=== PATIENT | male | born 1965 | race Two or more races ===

== ENCOUNTER 2017-06-14 14:20 | Inpatient (IN) | payer OTHER ==
[2017-06-14 16:46] VITALS: BMI 27.3
--- NOTE | 2017-06-14 17:57 | HP ---
Admission ROS [facility] - [facility] Chief Complaint: i want to go to rehab Allergies/Adverse Reactions: Allergies Allergy/AdvReac Type Severity Reaction Status Date / Time No Known Allergies Allergy Verified 06/14/17 16:56 History of Present Illness: 52 years old male with long history of heroin nicotine dependence history of lymphoma and pancreatitis and depression, right chest wall central port x 7 years, is admitted to rehab Exam Limitations: No Limitations - Ebola screening Have you traveled outside of the country in the last 21 days: No Have you had contact with anyone from an Ebola affected area: No Have you been sick,other than usual withdrawal symptoms: No Do you have a fever: No - Review of Systems Constitutional: Weight Stable EENT: reports: Hearing Loss (right ear hearing loss x 2006) Respiratory: reports: No Symptoms reported Cardiac: reports: No Symptoms Reported GI: reports: No Symptoms Reported : reports: No Symptoms Reported Musculoskeletal: reports: No Symptoms Reported Integumentary: reports: No Symptoms Reported Neuro: reports: No Symptoms reported Endocrine: reports: No Symptoms Reported Hematology: reports: No Symptoms Reported Psychiatric: reports: Judgement Intact, Mood/Affect Appropiate, Orientated x3 Other Systems: Reviewed and Negative Patient History - Patient Medical History Hx Anemia: No Hx Asthma: No Hx Chronic Obstructive Pulmonary Disease (COPD): No Hx Cancer: Yes (lymphoma/pancreatitis 2009) Hx Cardiac Disorders: No Hx Congestive Heart Failure: No Hx Hypertension: No Hx Hypercholesterolemia: No Hx Pacemaker: No HX Cerebrovascular Accident: No Hx Seizures: No Hx Dementia: No Hx Diabetes: No Hx Gastrointestinal Disorders: No Hx Liver Disease: No Hx Genitourinary Disorders: No Hx Sexually Transmitted Disorders: No Hx Renal Disease (ESRD): No Hx Thyroid Disease: No Hx Human Immunodeficiency Virus (HIV): No Hx Hepatitis C: Yes (treated) Hx Depression: Yes Hx Suicide Attempt: No Hx Bipolar Disorder: No Hx Schizophrenia: No - Patient Surgical History Past Surgical History: No - PPD History Previous Implant?: Yes Documented Results: Negative w/o proof Implanted On Prior [facility] Admission?: No PPD to be Administered?: Yes - Smoking Cessation Smoking history: Current every day smoker Have you smoked in the past 12 months: Yes Aproximately how many cigarettes per day: 10 Cigars Per Day: 0 Hx Chewing Tobacco Use: No Initiated information on smoking cessation: Yes 'Breaking Loose' booklet given: 06/14/17 - Substance & Tx. History Hx Alcohol Use: No Hx Substance Use: Yes Substance Use Type: Heroin Hx Substance Use Treatment: Yes (2006) - Substances Abused Heroin Route: Inhalation Frequency: Daily Amount used: 6 BAGS Age of first use: 11 Date of Last Use: 06/14/07 Family Disease History - Family Disease History Family Disease History: Other: Father, Mother Admission Physical Exam [facility] - Vital Signs Vital Signs: Vital Signs - 24 hr 06/14/17 16:44 Temperature 97.9 F Pulse Rate 60 Respiratory 18 Rate Blood Pressure 150/96 - Physical General Appearance: Yes: No Apparent Distress, Nourished, Appropriately Dressed HEENTM: Yes: Hearing grossly Normal, Normal ENT Inspection, Normocephalic, Normal Voice Respiratory: Yes: Chest Non-Tender, Lungs Clear, Normal Breath Sounds, No Respiratory Distress, No Accessory Muscle Use Neck: Yes: Supple, Trachea in good position Breast: Yes: Breasts Symetrical Cardiology: Yes: Regular Rhythm, Regular Rate, S1, S2 Abdominal: Yes: Normal Bowel Sounds, Non Tender, Soft Genitourinary: Yes: Within Normal Limits Back: Yes: Normal Inspection Musculoskeletal: Yes: full range of Motion, Gait Steady Extremities: Yes: Normal Inspection, Normal Range of Motion, Non-Tender Neurological: Yes: Fully Oriented, Alert, Motor Strength 5/5, Normal Mood/Affect , Normal Response Integumentary: Yes: Warm Lymphatic: Yes: Within Normal Limits - Diagnostic (1) Opioid dependence with withdrawal Current Visit: Yes Status: Acute (2) Nicotine dependence Current Visit: Yes Status: Acute Qualifiers: Nicotine product type: cigarettes Substance use status: in withdrawal Qualified Code(s): F17.213 - Nicotine dependence, cigarettes, with withdrawal (3) History of lymphatic and hematopoietic neoplasm Current Visit: Yes Status: Resolved Comment: right upper chest wall (4) Portacath in place Current Visit: Yes Status: Inactive Comment: right upper chest wall since 2009 last flu2015 Cleared for Admission [facility] - Detox or Rehab [facility] Level of Care: Observation Bed Detox Regimen/Protocol: Not Applicable Claeared for Rehab Admission: Yes [facility] Breath Alcohol Content Breath Alcohol Content: 0 Urine Drug Screen - Results Drug Screen Negative: Yes Inpatient Rehab Admission - Initial Determination Are CD services needed?: Yes Free of communicable disease: Yes Not in need of hospitalization: Yes - Rehab Admission Criteria Previous failed treatment: Yes Poor recovery environment: Yes Comorbidities: Yes Lacks judgement: No Patient is meeting Inpatient Rehab admission criteria:: Yes
[2017-06-14] MEDS ORDERED: MENTHOL/PHENOL 1 EACH UD MM PRN (18:11)
[2017-06-14] MEDS ORDERED: LOPERAMIDE HCL 2 MG CAPSULE PO PRN (18:11)
[2017-06-14] MEDS ORDERED: MAGNESIUM CITRATE 300 ML BOTTLE PO PRN (18:11)
[2017-06-14] MEDS ORDERED: guaiFENesin/D-METHORPHAN HB 10 ML UNIT-DOSE CUPS PO PRN (18:11)
[2017-06-14] MEDS ORDERED: ACETAMINOPHEN 325 MG TABLET (FP) PO PRN (18:11)
[2017-06-14] MEDS ORDERED: MAG HYDROX/AL HYDROX/SIMETH 30 ML UNIT-DOSE CUP PO PRN (18:11)
[2017-06-14] MEDS ORDERED: IBUPROFEN 400 MG TABLET (FP) PO PRN (18:11)
[2017-06-14] MEDS ORDERED: MAGNESIUM HYDROX 2400MG/30ML ORAL SUSPENSION 30 ML CUP PO PRN (18:11)
[2017-06-14] MEDS ORDERED: P-EPHED 60MG/TRIPROLIDI 2.5MG TABLET PO PRN (18:11)
[2017-06-14] MEDS ORDERED: NICOTINE 14 MG/24 HOURS TOPICAL PATCH TD PRN (18:14)
--- NOTE | 2017-06-14 20:51 | PN ---
[facility] Progress Note Note: Psychiatry Attending's on-call note : Called to enter orders for seroquel and prozac. New admission : 52 y/o male. Discharged today from [facility]. From the psychiatric inpatient service (self-report). Endorses MDD and Heroin Dependence. Spoke to patient via telephone.Clear historian. Admits to being on seroquel " for years." Reason : insomnia.Last taken on 06/13/17 at [facility]. Mr Bedoya insists on continuing this regimen. He is informed of side effects/benefits of both drugs. Prozac 20 mg po daily Seroquel 100 mg po hs Ordered. Consent (verbal) obtained from patient. Negative toxicology on admission.
[2017-06-14] MEDS ORDERED: TUBERCULIN PPD 5 TU/0.1ML VIAL ID ONE (22:14)
[2017-06-14] MEDS: QUEtiapine FUMARATE 100 MG TABLET (FP) PO SCH (22:34)
[2017-06-14] MEDS: THIAMINE HCL 100 MG TABLET (FP) PO SCH (22:34)
[2017-06-15 02:32] LABS: URINE APPEARANCE CLEAR; URINE BILIRUBIN NEGATIVE (NEGATIVE); URINE BLOOD NEGATIVE (NEGATIVE); URINE COLOR LTYELLOW; URINE GLUCOSE (UA) NEGATIVE (NEGATIVE); URINE KETONE NEGATIVE (NEGATIVE); URINE LEUK ESTERASE NEGATIVE (NEGATIVE); URINE NITRITE NEGATIVE (NEGATIVE); URINE PROTEIN NEGATIVE (NEGATIVE); URINE UROBILINOGEN NEGATIVE mg/dL (0.2-1.0)
--- NOTE | 2017-06-15 09:18 | EKG ---
Test Reason : Blood Pressure : / mmHG Vent. Rate : 074 BPM Atrial Rate : 074 BPM P-R Int : 152 ms QRS Dur : 094 ms QT Int : 414 ms P-R-T Axes : 061 074 052 degrees QTc Int : 459 ms NORMAL SINUS RHYTHM NORMAL ECG NO PREVIOUS ECGS AVAILABLE Confirmed by BEKAH GEIGER MD ([id number]) on 06/15/2017 9:18:37 AM Referred By: Confirmed By:BEKAH GEIGER MD
[2017-06-15] MEDS: FLUoxetine HCL 20 MG CAPSULE (FP) PO SCH (09:38)
[2017-06-15] MEDS: PRENATAL VITAMINS W/ FOLIC ACID TABLET (FP) PO SCH (09:38)
[2017-06-15] MEDS: NICOTINE POLACRILEX 2 MG GUM BC PRN ×2 (09:38→21:36)
[2017-06-15] MEDS ORDERED: NICOTINE 14 MG/24 HOURS TOPICAL PATCH TD SCH (10:00)
--- NOTE | 2017-06-15 10:58 | HP ---
Psychiatrist Admission - Data Date of interview: 06/15/17 Admission source: [facility] Identifying data: This is the first inpatient rehabilitation admission for this 52 year old male, father of 3 grown children, he is unemployed and homeless. Medical History: Lymphoma and has a central port to Rt. chest wall x 7yrs. 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 Psychiatric History: Patient reports was diagnosed with depression and anxiety, reports about 7 psychiatric hospitalizations and four CPEP visit, he recently was admitted to [facility] and referred to for the treatment. Reports he stayed in the hospital for one month due to depressed mood and suicidal thoghts related to his homelessness and the loss of his identifying documents( certificate, social security card while at [facility] . Patient reports he currently on Seroquel 100 mg po hs and Prozac 20 mg po daily. Physical/Sexual Abuse/Trauma History: Patient denies. Additional Comment: Patient reports has a long history of time spent in long-term, was in [facility] for 4 years from age [age], was imprisoned again at age of 16 for armed robbery and attempted murder and spent 22 years in [facility], in 2014 spent another 2 years and released in January 2017. Vital Signs: Vital Signs - 24 hr 06/14/17 06/14/17 06/15/17 16:44 22:30 00:30 Temperature 97.9 F 98 F Pulse Rate 60 86 Respiratory 18 18 18 Rate Blood Pressure 150/96 128/80 06/15/17 06/15/17 03:30 06:52 Temperature 97.8 F Pulse Rate 64 Respiratory 18 16 Rate Blood Pressure 126/69 Allergies/Adverse Reactions: Allergies Allergy/AdvReac Type Severity Reaction Status Date / Time No Known Allergies Allergy Verified 06/14/17 16:56 Date of last physical exam: 06/14/17 Concur with the findings of this exam: Yes - Substance Abuse/Tx History Hx Alcohol Use: No Hx Substance Use: Yes Substance Use Type: Heroin (4 bags daily ) Hx Substance Use Treatment: No Mental Status Exam - Mental Status Exam Alert and Oriented to: Time, Place, Person Cognitive Function: Good Patient Appearance: Well Groomed Mood: Hopeful Affect: Appropriate, Mood Congruent Patient Behavior: Appropriate, Cooperative Speech Pattern: Clear, Appropriate Voice Loudness: Normal Thought Process: Intact, Goal Oriented Thought Disorder: Not Present Hallucinations: Denies Suicidal Ideation: Denies Homicidal Ideation: Denies Insight/Judgement: Fair Sleep: Fair Appetite: Fair Muscle strength/Tone: Normal Gait/Station: Normal Psychiatric Findings - Problem List ([place] 1, 2,3) (1) Opioid dependence Current Visit: Yes Status: Acute (2) MDD (major depressive disorder) Current Visit: Yes Status: Acute (3) Nicotine dependence Current Visit: Yes Status: Acute Qualifiers: Nicotine product type: cigarettes Substance use status: in withdrawal Qualified Code(s): F17.213 - Nicotine dependence, cigarettes, with withdrawal - Initial Treatment Plan Initial Treatment Plan: will continue his current medications, monitor progress as needed.
--- NOTE | 2017-06-15 16:02 | PN ---
[facility] Progress Note Note: Patient refusing admission bloodwork, brought recent bloodwork with him reviewed , no further work up or labwork necessary. d/w nurse
[2017-06-15] MEDS: QUEtiapine FUMARATE 100 MG TABLET (FP) PO SCH (21:35)
[2017-06-15] MEDS: THIAMINE HCL 100 MG TABLET (FP) PO SCH (21:35)
[2017-06-16] MEDS: NICOTINE POLACRILEX 2 MG GUM BC PRN ×2 (09:40→21:26)
[2017-06-16] MEDS: PRENATAL VITAMINS W/ FOLIC ACID TABLET (FP) PO SCH (09:40)
[2017-06-16] MEDS: FLUoxetine HCL 20 MG CAPSULE (FP) PO SCH (09:40)
[2017-06-16] MEDS: THIAMINE HCL 100 MG TABLET (FP) PO SCH (21:25)
[2017-06-16] MEDS: QUEtiapine FUMARATE 100 MG TABLET (FP) PO SCH (21:25)
[2017-06-17] MEDS: FLUoxetine HCL 20 MG CAPSULE (FP) PO SCH (09:50)
[2017-06-17] MEDS: PRENATAL VITAMINS W/ FOLIC ACID TABLET (FP) PO SCH (09:50)
[2017-06-17] MEDS: NICOTINE POLACRILEX 2 MG GUM BC PRN ×2 (09:51→21:19)
[2017-06-17] MEDS: QUEtiapine FUMARATE 100 MG TABLET (FP) PO SCH (21:19)
[2017-06-17] MEDS: THIAMINE HCL 100 MG TABLET (FP) PO SCH (21:19)
[2017-06-18] MEDS: PRENATAL VITAMINS W/ FOLIC ACID TABLET (FP) PO SCH (10:05)
[2017-06-18] MEDS: FLUoxetine HCL 20 MG CAPSULE (FP) PO SCH (10:05)
[2017-06-18] MEDS: NICOTINE POLACRILEX 2 MG GUM BC PRN ×2 (10:06→21:15)
[2017-06-18] MEDS: THIAMINE HCL 100 MG TABLET (FP) PO SCH (21:14)
[2017-06-18] MEDS: QUEtiapine FUMARATE 100 MG TABLET (FP) PO SCH (21:14)
[2017-06-19] MEDS: PRENATAL VITAMINS W/ FOLIC ACID TABLET (FP) PO SCH (09:38)
[2017-06-19] MEDS: FLUoxetine HCL 20 MG CAPSULE (FP) PO SCH (09:38)
[2017-06-19] MEDS: NICOTINE POLACRILEX 2 MG GUM BC PRN ×2 (09:39→21:20)
[2017-06-19] MEDS: THIAMINE HCL 100 MG TABLET (FP) PO SCH (21:19)
[2017-06-19] MEDS: QUEtiapine FUMARATE 100 MG TABLET (FP) PO SCH (21:19)
[2017-06-20] MEDS: FLUoxetine HCL 20 MG CAPSULE (FP) PO SCH (10:11)
[2017-06-20] MEDS: PRENATAL VITAMINS W/ FOLIC ACID TABLET (FP) PO SCH (10:11)
[2017-06-20] MEDS: NICOTINE POLACRILEX 2 MG GUM BC PRN ×2 (10:12→21:16)
[2017-06-20] MEDS: THIAMINE HCL 100 MG TABLET (FP) PO SCH (21:14)
[2017-06-20] MEDS: QUEtiapine FUMARATE 100 MG TABLET (FP) PO SCH (21:15)
[2017-06-21] MEDS: PRENATAL VITAMINS W/ FOLIC ACID TABLET (FP) PO SCH (10:02)
[2017-06-21] MEDS: FLUoxetine HCL 20 MG CAPSULE (FP) PO SCH (10:02)
[2017-06-21] MEDS: NICOTINE POLACRILEX 2 MG GUM BC PRN ×2 (10:03→21:42)
[2017-06-21] MEDS: THIAMINE HCL 100 MG TABLET (FP) PO SCH (21:42)
[2017-06-21] MEDS: QUEtiapine FUMARATE 100 MG TABLET (FP) PO SCH (21:42)
[2017-06-22] MEDS: FLUoxetine HCL 20 MG CAPSULE (FP) PO SCH (10:00)
[2017-06-22] MEDS: PRENATAL VITAMINS W/ FOLIC ACID TABLET (FP) PO SCH (10:00)
[2017-06-22] MEDS: NICOTINE POLACRILEX 2 MG GUM BC PRN ×2 (10:01→21:20)
[2017-06-22] MEDS: THIAMINE HCL 100 MG TABLET (FP) PO SCH (21:19)
[2017-06-22] MEDS: QUEtiapine FUMARATE 100 MG TABLET (FP) PO SCH (21:20)
[2017-06-23] MEDS: PRENATAL VITAMINS W/ FOLIC ACID TABLET (FP) PO SCH (10:09)
[2017-06-23] MEDS: FLUoxetine HCL 20 MG CAPSULE (FP) PO SCH (10:10)
[2017-06-23] MEDS: NICOTINE POLACRILEX 2 MG GUM BC PRN ×2 (10:11→21:15)
[2017-06-23] MEDS: QUEtiapine FUMARATE 100 MG TABLET (FP) PO SCH (21:13)
[2017-06-23] MEDS: THIAMINE HCL 100 MG TABLET (FP) PO SCH (21:13)
[2017-06-24] MEDS: FLUoxetine HCL 20 MG CAPSULE (FP) PO SCH (09:42)
[2017-06-24] MEDS: NICOTINE POLACRILEX 2 MG GUM BC PRN ×2 (09:43→21:17)
[2017-06-24] MEDS: PRENATAL VITAMINS W/ FOLIC ACID TABLET (FP) PO SCH (09:43)
[2017-06-24] MEDS: QUEtiapine FUMARATE 100 MG TABLET (FP) PO SCH (21:16)
[2017-06-24] MEDS: THIAMINE HCL 100 MG TABLET (FP) PO SCH (21:16)
[2017-06-25] MEDS: PRENATAL VITAMINS W/ FOLIC ACID TABLET (FP) PO SCH (10:13)
[2017-06-25] MEDS: FLUoxetine HCL 20 MG CAPSULE (FP) PO SCH (10:13)
[2017-06-25] MEDS: NICOTINE POLACRILEX 2 MG GUM BC PRN ×2 (10:13→21:19)
[2017-06-25] MEDS: QUEtiapine FUMARATE 100 MG TABLET (FP) PO SCH (21:19)
[2017-06-25] MEDS: THIAMINE HCL 100 MG TABLET (FP) PO SCH (21:19)
[2017-06-26] MEDS: FLUoxetine HCL 20 MG CAPSULE (FP) PO SCH (10:02)
[2017-06-26] MEDS: PRENATAL VITAMINS W/ FOLIC ACID TABLET (FP) PO SCH (10:02)
[2017-06-26] MEDS: NICOTINE POLACRILEX 2 MG GUM BC PRN ×2 (10:03→21:27)
[2017-06-26] MEDS: THIAMINE HCL 100 MG TABLET (FP) PO SCH (21:26)
[2017-06-26] MEDS: QUEtiapine FUMARATE 100 MG TABLET (FP) PO SCH (21:26)
[2017-06-27] MEDS: PRENATAL VITAMINS W/ FOLIC ACID TABLET (FP) PO SCH (10:07)
[2017-06-27] MEDS: FLUoxetine HCL 20 MG CAPSULE (FP) PO SCH (10:07)
[2017-06-27] MEDS: NICOTINE POLACRILEX 2 MG GUM BC PRN ×2 (10:08→21:17)
[2017-06-27] MEDS: QUEtiapine FUMARATE 100 MG TABLET (FP) PO SCH (21:17)
[2017-06-27] MEDS: THIAMINE HCL 100 MG TABLET (FP) PO SCH (21:17)
[2017-06-28] MEDS: PRENATAL VITAMINS W/ FOLIC ACID TABLET (FP) PO SCH (10:32)
[2017-06-28] MEDS: FLUoxetine HCL 20 MG CAPSULE (FP) PO SCH (10:32)
[2017-06-28] MEDS: NICOTINE POLACRILEX 2 MG GUM BC PRN ×2 (10:33→21:19)
[2017-06-28] MEDS: QUEtiapine FUMARATE 100 MG TABLET (FP) PO SCH (21:19)
[2017-06-28] MEDS: THIAMINE HCL 100 MG TABLET (FP) PO SCH (21:19)
[2017-06-29] MEDS: PRENATAL VITAMINS W/ FOLIC ACID TABLET (FP) PO SCH (09:50)
[2017-06-29] MEDS: FLUoxetine HCL 20 MG CAPSULE (FP) PO SCH (09:50)
[2017-06-29] MEDS: NICOTINE POLACRILEX 2 MG GUM BC PRN ×2 (09:51→21:19)
[2017-06-29] MEDS: THIAMINE HCL 100 MG TABLET (FP) PO SCH (21:19)
[2017-06-29] MEDS: QUEtiapine FUMARATE 100 MG TABLET (FP) PO SCH (21:19)
[2017-06-30] MEDS: FLUoxetine HCL 20 MG CAPSULE (FP) PO SCH (09:38)
[2017-06-30] MEDS: PRENATAL VITAMINS W/ FOLIC ACID TABLET (FP) PO SCH (09:38)
[2017-06-30] MEDS: THIAMINE HCL 100 MG TABLET (FP) PO SCH (21:20)
[2017-06-30] MEDS: QUEtiapine FUMARATE 100 MG TABLET (FP) PO SCH (21:20)
[2017-06-30] MEDS: NICOTINE POLACRILEX 2 MG GUM BC PRN (21:20)
[2017-07-01] MEDS: FLUoxetine HCL 20 MG CAPSULE (FP) PO SCH (11:00)
[2017-07-01] MEDS: PRENATAL VITAMINS W/ FOLIC ACID TABLET (FP) PO SCH (11:00)
[2017-07-01] MEDS: THIAMINE HCL 100 MG TABLET (FP) PO SCH (21:22)
[2017-07-01] MEDS: QUEtiapine FUMARATE 100 MG TABLET (FP) PO SCH (21:22)
[2017-07-01] MEDS: NICOTINE POLACRILEX 2 MG GUM BC PRN (21:23)
[2017-07-02] MEDS: PRENATAL VITAMINS W/ FOLIC ACID TABLET (FP) PO SCH (09:38)
[2017-07-02] MEDS: FLUoxetine HCL 20 MG CAPSULE (FP) PO SCH (09:38)
[2017-07-02] MEDS: NICOTINE POLACRILEX 2 MG GUM BC PRN (21:18)
[2017-07-02] MEDS: QUEtiapine FUMARATE 100 MG TABLET (FP) PO SCH (21:18)
[2017-07-02] MEDS: THIAMINE HCL 100 MG TABLET (FP) PO SCH (21:18)
[2017-07-03] MEDS: FLUoxetine HCL 20 MG CAPSULE (FP) PO SCH (09:55)
[2017-07-03] MEDS: PRENATAL VITAMINS W/ FOLIC ACID TABLET (FP) PO SCH (09:55)
[2017-07-03] MEDS: NICOTINE POLACRILEX 2 MG GUM BC PRN (09:56)
[2017-07-03] MEDS: THIAMINE HCL 100 MG TABLET (FP) PO SCH (21:27)
[2017-07-03] MEDS: QUEtiapine FUMARATE 100 MG TABLET (FP) PO SCH (21:27)
[2017-07-04] MEDS: FLUoxetine HCL 20 MG CAPSULE (FP) PO SCH (10:05)
[2017-07-04] MEDS: PRENATAL VITAMINS W/ FOLIC ACID TABLET (FP) PO SCH (10:05)
[2017-07-04] MEDS: THIAMINE HCL 100 MG TABLET (FP) PO SCH (21:14)
[2017-07-04] MEDS: QUEtiapine FUMARATE 100 MG TABLET (FP) PO SCH (21:14)
[2017-07-04] MEDS: NICOTINE POLACRILEX 2 MG GUM BC PRN (21:15)
[2017-07-05] MEDS: FLUoxetine HCL 20 MG CAPSULE (FP) PO SCH (09:58)
[2017-07-05] MEDS: PRENATAL VITAMINS W/ FOLIC ACID TABLET (FP) PO SCH (09:58)
[2017-07-05] MEDS: NICOTINE POLACRILEX 2 MG GUM BC PRN ×2 (09:59→21:13)
[2017-07-05] MEDS: THIAMINE HCL 100 MG TABLET (FP) PO SCH (21:13)
[2017-07-05] MEDS: QUEtiapine FUMARATE 100 MG TABLET (FP) PO SCH (21:13)
[2017-07-06] MEDS: FLUoxetine HCL 20 MG CAPSULE (FP) PO SCH (09:52)
[2017-07-06] MEDS: PRENATAL VITAMINS W/ FOLIC ACID TABLET (FP) PO SCH (09:52)
[2017-07-06] MEDS: NICOTINE POLACRILEX 2 MG GUM BC PRN ×2 (09:52→21:17)
[2017-07-06] MEDS: QUEtiapine FUMARATE 100 MG TABLET (FP) PO SCH (21:17)
[2017-07-06] MEDS: THIAMINE HCL 100 MG TABLET (FP) PO SCH (21:17)
[2017-07-07] MEDS: PRENATAL VITAMINS W/ FOLIC ACID TABLET (FP) PO SCH (10:42)
[2017-07-07] MEDS: FLUoxetine HCL 20 MG CAPSULE (FP) PO SCH (10:43)
[2017-07-07] MEDS: THIAMINE HCL 100 MG TABLET (FP) PO SCH (21:23)
[2017-07-07] MEDS: QUEtiapine FUMARATE 100 MG TABLET (FP) PO SCH (21:23)
[2017-07-07] MEDS: NICOTINE POLACRILEX 2 MG GUM BC PRN (21:24)
[2017-07-08] MEDS: FLUoxetine HCL 20 MG CAPSULE (FP) PO SCH (10:38)
[2017-07-08] MEDS: PRENATAL VITAMINS W/ FOLIC ACID TABLET (FP) PO SCH (10:38)
[2017-07-08] MEDS: QUEtiapine FUMARATE 100 MG TABLET (FP) PO SCH (21:16)
[2017-07-08] MEDS: THIAMINE HCL 100 MG TABLET (FP) PO SCH (21:16)
[2017-07-08] MEDS: NICOTINE POLACRILEX 2 MG GUM BC PRN (21:17)
[2017-07-09 07:11] VITALS: BP 136/85; PULSE 67; TEMP 97.5
--- NOTE | 2017-07-09 10:28 | PN ---
Psychiatric Progress Note Vital Signs: Vital Signs Period Temp Pulse Resp BP Sys/Wright Pulse Ox Last 24 Hr 97.5 F 67 18-18 136/85 Date of Session: 07/09/17 Chief Complaint:: discharge visit HPI: Patient has addressed opioid, nicotine dependence comorbid MDD. ROS: Hep C. Current Medications: Active Medications Generic Name Dose Route Start Last Admin Trade Name Freq PRN Reason Stop Dose Admin Acetaminophen 650 mg 06/14/17 18:11 Tylenol - PO Q4H PRN PAIN Al Hydroxide/Mg Hydroxide 30 ml 06/14/17 18:11 Mylanta Oral Suspension - PO Q6H PRN DYSPEPSIA Eucalyptus/Menthol/Phenol/Sorbitol 1 each 06/14/17 18:11 Cepastat Lozenge - MM Q4H PRN SORE THROAT Fluoxetine HCl 20 mg 06/15/17 10:00 07/08/17 10:38 Prozac - PO 20 mg DAILY NELSY Administration Guaifenesin 10 ml 06/14/17 18:11 Robitussin Dm - PO Q6H PRN COUGH Ibuprofen 400 mg 06/14/17 18:11 Motrin - PO Q6H PRN SEVERE PAIN Loperamide HCl 4 mg 06/14/17 18:11 Imodium - PO Q6H PRN DIARRHEA Magnesium Citrate 300 ml 06/14/17 18:11 Citroma - PO Q48H PRN CONSTIPATION Magnesium Hydroxide 30 ml 06/14/17 18:11 Milk Of Magnesia - PO DAILY PRN CONSTIPATION Nicotine 14 mg 06/14/17 18:14 Nicoderm Patch - TD DAILY PRN WITHDRAWAL(CONT SUBST) Nicotine Polacrilex 2 mg 06/14/17 18:11 07/08/17 21:17 Nicorette Gum - BC 2 mg Q2H PRN Administration NICOTINE REPLACEMENT RX Multivit/Folic Acid/Iron 1 tab 06/15/17 10:00 07/08/17 10:38 Vitamins ([facility]) - PO 1 tab DAILY NELSY Administration Pseudoephedrine/Triprolidine 1 combo 06/14/17 18:11 Actifed - PO TID PRN NASAL CONGESTION Quetiapine Fumarate 100 mg 06/14/17 22:00 07/08/17 21:16 Seroquel - PO 100 mg HS NELSY Administration Thiamine HCl 100 mg 06/14/17 22:00 07/08/17 21:16 Vitamin B1 - PO 100 mg HS NELSY Administration Current Side Effect: No Lab tests ordered: No Lab tests reviewed: Yes Provider note:: Patient has completed today his treatment and met his goals, will continue to address his issues at [facility] outpatient treatment program. He understands the negative impact of his addiction over major life areas, including physical and mental health and motivated to continue maintain abstinence. Patient continues to finding Seroquel and Prozac effective, reports he feels bettre. Scripts provided for 30 days, patient is stable for discharge. Total face to face time:: 20 Mental Status Exam - Mental Status Exam Alert and Oriented to: Time, Place, Person Cognitive Function: Good Patient Appearance: Well Groomed Mood: Hopeful Affect: Appropriate, Mood Congruent Patient Behavior: Appropriate, Cooperative Speech Pattern: Clear, Appropriate Voice Loudness: Normal Thought Process: Intact, Goal Oriented Thought Disorder: Not Present Hallucinations: Denies Suicidal Ideation: Denies Homicidal Ideation: Denies Insight/Judgement: Fair Sleep: Fair Appetite: Fair Muscle strength/Tone: Normal Gait/Station: Normal Psychiatric Treatment Plan - Problem List (1) Opioid dependence Current Visit: Yes (2) MDD (major depressive disorder) Current Visit: Yes (3) Nicotine dependence Current Visit: Yes Qualifiers: Nicotine product type: cigarettes Substance use status: in withdrawal Qualified Code(s): F17.213 - Nicotine dependence, cigarettes, with withdrawal
[2017-07-09] MEDS: PRENATAL VITAMINS W/ FOLIC ACID TABLET (FP) PO SCH (10:43)
[2017-07-09] MEDS: FLUoxetine HCL 20 MG CAPSULE (FP) PO SCH (10:43)
== END 2017-07-09 10:40 | disposition home or self-care (01) | DRG 772 ==
LOC: YASAS 14:20 → Y5N 17:27
PROVIDERS: ADMIT Psychiatry & Neurology Psychiatry; ATTEND Psychiatry & Neurology Psychiatry
PROC: HZ42ZZZ Group Counseling for Substance Abuse Treatment, Cognitive-Behavioral (ICD-10-PCS; principal; 2017-06-14)
DX: F11.20 Opioid dependence, uncomplicated (principal); F33.9 Major depressive disorder, recurrent, unspecified; B18.2 Chronic viral hepatitis C; Z86.69 Personal history of other diseases of the nervous system and sense organs; Z85.07 Personal history of malignant neoplasm of pancreas; Z59.0 Homelessness
CPT/HCPCS: 81003; 93005; 93010